=== PATIENT | female | born 1965 | race Caucasian/White ===

== ENCOUNTER 2016-12-09 08:38 | Emergency (ER) | payer OTHER ==
[2016-12-09 09:27] LABS: HEMOGLOBIN 15.3 gm/dl (12.3-15.3); RED BLOOD COUNT 5.3 M/UL (4.00-5.10); WHITE BLOOD COUNT 16.9 K/UL (4.5-11.0)
[2016-12-09 09:45] LABS: BUN/CREATININE RATIO 22 (0-10)
== END 2016-12-09 13:30 | disposition home or self-care (01) ==
LOC: ER1 08:38
PROVIDERS: Physician Assistant
DX: K80.70 Calculus of gallbladder and bile duct without cholecystitis without obstruction (principal); D72.829 Elevated white blood cell count, unspecified; Z98.51 Tubal ligation status; Z98.890 Other specified postprocedural states
CPT/HCPCS: 36415; 76705; 80053; 81001; 82150; 83690; 84484; 85025; 93005; 96374; 96375; 96376; 99284; J2270; J2405; J7050; Q9962

== ENCOUNTER → 2020-11-04 | Outpatient (CLI) | payer OTHER ==
[~2020-11-04] MED LIST: ASPIRIN CHEWABL81 MG PO; CEFUROXIME500 MG PO; ROBITUSSIN100 MG/51 PO; ZITHROMAX500 MG PO; ZOFRAN ODT 4 MG4 MG PO
== END ==
LOC: HEART 5 10:00
DX: I73.9 Peripheral vascular disease, unspecified (principal)

== ENCOUNTER → 2020-11-23 | Outpatient (CLI) | payer OTHER | LOC: KOH-I 09:47 | DX: M54.5 Low back pain (principal); G89.29 Other chronic pain; M47.816 Spondylosis without myelopathy or radiculopathy, lumbar region | CPT/HCPCS: 72100 ==

== ENCOUNTER → 2021-11-12 | Outpatient (CLI) | payer OTHER | LOC: KOH-I 08:17 | DX: D47.2 Monoclonal gammopathy (principal); M17.0 Bilateral primary osteoarthritis of knee; M47.812 Spondylosis without myelopathy or radiculopathy, cervical region | CPT/HCPCS: 77075 ==

== ENCOUNTER 2021-12-13 10:31 | Emergency (ER) | payer OTHER ==
[2021-12-13 12:36] LABS: HEMOGLOBIN 14.4 gm/dl (12.3-15.3); RED BLOOD COUNT 5.12 M/UL (4.00-5.10)
[2021-12-13 13:00] LABS: BUN/CREATININE RATIO 16 (0-10)
== END 2021-12-13 16:12 | disposition home or self-care (01) ==
LOC: ER1 10:31
PROVIDERS: Physician Assistant Medical
DX: R07.89 Other chest pain (principal); E78.5 Hyperlipidemia, unspecified; J45.909 Unspecified asthma, uncomplicated; Z88.5 Allergy status to narcotic agent
CPT/HCPCS: 71045; 80053; 82550; 82553; 84484; 85025; 93005; 99285